=== PATIENT | female | born 1955 | race Caucasian/White ===

== ENCOUNTER 2022-11-27 01:09 | Day surgery (SDC) | payer MEDICARE, SELFPAY ==
[2022-11-14 10:21] VITALS: BMI 27.5
--- NOTE | 2022-11-26 08:14 | WPDANESEPPF ---
Anes - Initial Pre Proc Eval Procedure: Operation Date: 11/27/22 07:30 Proposed Procedures p Screening Colonoscopy - Perry Moreno MD Date/Time: 11/26/22 08:14 Surgeon: Perry Moreno MD Pre Op Diagnosis: neoplasm screening Patient Data Age: 67 Gender: F Height: 1.63 m Weight: 72.8 kg Allergies Allergy/AdvReac Type Severity Reaction Status Date / Time No Known Allergies Allergy Verified 11/27/22 06:23 Home Medications Medication Instructions Recorded Confirmed Type ascorbic acid (vitamin C) 1,000 mg 1 g PO DAILY 11/14/22 11/27/22 History tablet aspirin 81 mg tablet 81 mg PO DAILY 11/14/22 11/27/22 History cholecalciferol (vitamin D3) 50 50 mcg PO DAILY 11/14/22 11/27/22 History mcg (2,000 unit) tablet (Vitamin D3) lisinopril 2.5 mg tablet 2.5 mg PO DAILY 11/14/22 11/27/22 History mecobalamin (vitamin B12) 1,000 1,000 mcg sublingual DAILY 11/14/22 11/27/22 History mcg disintegrating tablet,sublingual simvastatin 10 mg tablet 10 mg PO DAILY 11/14/22 11/27/22 History tumeric 100 mg-rosa 150 mg-olive 1 cap PO DAILY 11/14/22 11/27/22 History 50 mg-oreg 150 mg-caprylate capsule Patient hx anesthesia problems: none Family hx anesthesia problems: none Results Review: All pre-operative results and documents have been reviewed as part of the pre-operative evaluation. FORMERLY [facility], [facility]–1983 Past Medical History Medical History (Updated 11/26/22 @ 11:22 by Perry Moreno MD) Hyperlipidemia Hypertension Surgical History Surgical History (Updated 11/26/22 @ 08:15 by Ralph Howe DO) History of tubal ligation Social History Social History Smoking status: Former smoker Tobacco type: cigarettes Substance use type: does not use Living arrangements: with family Spiritual care concerns: No Anes - Eval Final PreProcedure Day of Procedure 11/26/22 08:14 Patient weight: overweight Heart: regular rate and rhythm Lungs: clear to auscultation Airway: Mallampati scale class II Neurological: alert and oriented Last oral intake: >/= 8 hours ASA classification: II Emergent: no Anesthetic plan: proceed Anesthesia type and monitoring: general GIVS and standard monitoring Results Review: All pre-operative results and documents have been reviewed as part of the pre-operative evaluation. Informed Consent: The patient's anesthetic plan and its attendant risks and benefits were discussed with the patient/family/POA. Questions were solicited and answers provided to the satisfaction of the patient/family/POA.
--- NOTE | 2022-11-26 11:22 | PM.HPGS ---
History of Present Illness History of Present Illness Consent: Risks, benefits, and alternatives have been discussed and questions answered. Patient agrees to proceed with procedure. Chief complaint: neoplasm screening Narrative: Piper Panchal is a 67 year old female who was referred for colon cancer screening. Review of Systems Review of Systems: All systems reviewed & are unremarkable except as noted in HPI and below PMFSH Past Medical History Medical History Hyperlipidemia Hypertension Surgical History Surgical History History of tubal ligation Social History Social History Smoking status: Former smoker Tobacco type: cigarettes Substance use type: does not use Living arrangements: with family Spiritual care concerns: No Meds Home Medications and Allergies Home Medications Medication Instructions Recorded Confirmed Type ascorbic acid (vitamin C) 1,000 mg 1 g PO DAILY 11/14/22 11/27/22 History tablet aspirin 81 mg tablet 81 mg PO DAILY 11/14/22 11/27/22 History cholecalciferol (vitamin D3) 50 50 mcg PO DAILY 11/14/22 11/27/22 History mcg (2,000 unit) tablet (Vitamin D3) lisinopril 2.5 mg tablet 2.5 mg PO DAILY 11/14/22 11/27/22 History mecobalamin (vitamin B12) 1,000 1,000 mcg sublingual DAILY 11/14/22 11/27/22 History mcg disintegrating tablet,sublingual simvastatin 10 mg tablet 10 mg PO DAILY 11/14/22 11/27/22 History tumeric 100 mg-rosa 150 mg-olive 1 cap PO DAILY 11/14/22 11/27/22 History 50 mg-oreg 150 mg-caprylate capsule Allergies Allergy/AdvReac Type Severity Reaction Status Date / Time No Known Allergies Allergy Verified 11/27/22 06:23 Exam Const: General: alert Orientation/consciousness: patient oriented x3 Resp: Auscultation: clear to auscultation bilaterally Cardio: Rhythm: regular rhythm GI: GI Palp: Yes Soft to palpation and No Tenderness to palpation present (GI) Neuro: General: patient oriented x3 Assessment and Plan Assessment and plan (1) Colon cancer screening: Code(s): Z12.11 - Encounter for screening for malignant neoplasm of colon Status: Acute Assessment and Plan: Colonoscopy with possible biopsy or polypectomy or cautery or injection of substances.
[2022-11-27 06:24] VITALS: BP 151/67; PULSE 88; RESP 18; TEMP 36.6; O2SAT 100; BMI 27.7
[2022-11-27] MEDS: LACTATED RINGERS 1,000 ML 150 ML IV CONT (06:33)
[2022-11-27 07:49] VITALS: BP 94/53; PULSE 82; RESP 18; O2SAT 99
[2022-11-27 07:59] VITALS: BP 124/57; PULSE 70; RESP 22; O2SAT 100
[2022-11-27 08:09] VITALS: BP 104/60; PULSE 68; RESP 26; O2SAT 100
== END 2022-11-27 08:21 | disposition home or self-care (01) ==
PROVIDERS: PCP Internal Medicine; Visit Provider Internal Medicine Gastroenterology
PROC: 0DJD8ZZ Inspection of Lower Intestinal Tract, Via Natural or Artificial Opening Endoscopic (ICD-10-PCS; CPT 45378; principal; 2022-11-27 07:30)
DX: Z12.11 Encounter for screening for malignant neoplasm of colon (principal); I10 Essential (primary) hypertension; E78.5 Hyperlipidemia, unspecified; Z79.82 Long term (current) use of aspirin; Z87.891 Personal history of nicotine dependence
CPT/HCPCS: G0121; J2704; J7120